=== PATIENT | male | born 1960 | race Asian ===

== ENCOUNTER 2018-09-15 14:46 | Emergency (ER) | payer OTHER ==
[~2018-09-15] VITALS: Ht 177.8 cm; Wt 92.0 kg
--- NOTE | 2018-09-15 15:31 | NUR ---
patient taken to ct
--- NOTE | 2018-09-15 16:06 | NUR ---
patient from CT. Given water
[2018-09-15 16:15] LABS: BASOPHILS # (AUTO) 0.02 x10^3/uL (0-0.1); BASOPHILS % (AUTO) 1 % (0-1); EOSINOPHILS # (AUTO) 0.03 x10^3/uL (0-0.4); EOSINOPHILS % (AUTO) 1 % (1-7); LYMPHOCYTES # (AUTO) 1.19 x10^3/uL (1-3.4); LYMPHOCYTES % (AUTO) 25 % (22-44); MD NO; MEAN CORPUSCULAR HEMOGLOBIN 32.1 pg (27.5-34.5); MEAN CORPUSCULAR HGB CONC 32.9 g/dL (33.2-36.2); MEAN CORPUSCULAR VOLUME 97.5 fL (81-97); MEAN PLATELET VOLUME 7.9 fL (7.4-10.4); MONOCYTES # (AUTO) 0.26 x10^3/uL (0.2-0.8); MONOCYTES % (AUTO) 5 % (2-9); NEUTROPHILS # (AUTO) 3.28 x10^3/uL (1.8-6.8); NEUTROPHILS % (AUTO) 69 % (42-75); PLATELET COUNT 189 x10^3/uL (130-400); RED BLOOD COUNT 5.08 x10^6/uL (4.38-5.82); RED CELL DISTRIBUTION WIDTH 13.3 % (9.4-14.8)
[2018-09-15 16:18] LABS: ALANINE AMINOTRANSFERASE 31 U/L (12-78); ALBUMIN 4.1 g/dL (3.4-5.0); ANION GAP 6 mmol/L (5-15); CHLORIDE 108 mmol/L (98-107); CREATININE 1.07 mg/dL (0.7-1.3)
[2018-09-15 16:21] LABS: ALKALINE PHOSPHATASE 64 U/L (45-117); BILIRUBIN,TOTAL 0.6 mg/dL (0.2-1.0)
--- NOTE | 2018-09-15 16:25 | NUR ---
PATIENT PLACED IN RECHECK
--- NOTE | 2018-09-15 16:35 | NUR ---
pt resting in bed, no complaints, vss
[2018-09-15 16:57] LABS: INTERNATIONAL NORMALIZED RATIO 0.96 (0.93-1.1); PROTHROMBIN TIME 10.1 Seconds (9.6-11.5)
--- NOTE | 2018-09-15 18:23 | NUR ---
PATIETN TO MRI
[2018-09-15] MEDS ORDERED: GADOBUTROL 10 MMOL/10 ML PFS ONE (18:36)
--- NOTE | 2018-09-15 18:47 | NUR ---
PATIETN FROM MRI
[2018-09-15 18:59] VITALS: BP 147/101
--- NOTE | 2018-09-15 19:00 | NUR ---
REPORT TO STEPHANIE FLORES
--- NOTE | 2018-09-15 19:27 | NUR ---
REPORT FROM MISTY FLORES. PT RESTING AND WAITING FOR MRI RESULTS. SPOUSE A BEDSIDE. CALL LIGHT IN REACH.
--- NOTE | 2018-09-15 20:08 | NUR ---
Patient given discharge instructions and they have confirmed that they understand the instructions. Patient ambulatory with steady gait.
== END 2018-09-15 20:10 | disposition home or self-care (01) ==
LOC: ED 17:46
DX: H53.2 Diplopia (principal)
CPT/HCPCS: 36415; 70450; 70553; 80053; 85025; 85610; 85730; 93005; 99284; A9585